=== PATIENT | male | born 1970 | race Hispanic/Latino ===

== ENCOUNTER 2016-10-31 03:31 | Inpatient (IN) | payer MEDICAID ==
--- NOTE | 2016-10-31 04:21 | ED PDOC ---
Arrival/HPI - General Chief Complaint: Psychiatric Evaluation Time Seen by Provider: 10/31/16 04:06 Historian: Patient, EMS - History of Present Illness Narrative History of Present Illness (Text): 10/31/16 04:18 Kevin Erazo is a 46 year old male, whose past medical history includes bipolar disorder, hepatitis B hepatitis C, polysubstance abuse, and depression, who presents to the Emergency department for substance abuse. EMS reports patient took an undisclosed amount of possibly Seroqul and Ativan. Limited HPI and ROS due to patient's somnolence. Time/Duration: Other (tonight) Symptom Onset: Gradual Symptom Course: Unchanged Activities at Onset: Rest, Light Context: Street Past Medical History - Provider Review Nursing Documentation Reviewed: Yes - Infectious Disease Hx of Infectious Diseases: None - Cardiac Hx Hypertension: Yes - Pulmonary Hx Tuberculosis: No - Neurological Hx Seizures: No - HEENT Hx HEENT Disorder: No - Renal Hx Renal Disorder: No - Endocrine/Metabolic Hx Diabetes Mellitus Type 2: Yes (diet controlled) - Hematological/Oncological Hx Cancer: No - Integumentary Hx Dermatological Disorder: No - Musculoskeletal/Rheumatological Hx Back Pain: Yes (takes oxycodone) Hx Falls: No Hx Herniated Disk: Yes - Gastrointestinal Hx Gastrointestinal Disorders: No - Genitourinary/Gynecological Hx Sexually Transmitted Diseases: No - Psychiatric Hx Anxiety: Yes Hx Bipolar Disorder: Yes Hx Depression: Yes Hx Substance Use: Yes - Surgical History Hx Appendectomy: Yes (as a teenager) - Anesthesia Hx Anesthesia: Yes Hx Anesthesia Reactions: No Hx Malignant Hyperthermia: No - Suicidal Assessment Feels Threatened In Home Enviroment: No Family/Social History - Physician Review Nursing Documentation Reviewed: Yes Family/Social History: No Known Family HX Smoking Status: Heavy Smoker > 10 Cigarettes Daily Hx Alcohol Use: No Hx Substance Use: Yes Substance used: seroquel 36mg and 4mg ativan Hx Substance Use Treatment: No Allergies/Home Meds Allergies/Adverse Reactions: Allergies haloperidol Allergy (Verified 10/31/16 03:57) ANAPHYLAXIS naproxen [From Naprosyn] Allergy (Verified 10/31/16 03:57) SHORTNESS OF BREATH Review of Systems - Review of Systems Systems not reviewed;Unavailable: Altered Mental Status Physical Exam Vital Signs Reviewed: Yes Vital Signs Temp Pulse Resp BP Pulse Ox 10/31/16 08:02 75 16 117/73 95 10/31/16 07:04 75 18 116/60 99 10/31/16 05:32 76 18 112/74 88 L 10/31/16 03:55 99.0 F 103 H 16 105/67 95 Temperature: Afebrile Blood Pressure: Normal Pulse: Regular Respiratory Rate: Normal Appearance: Positive for: Well-Appearing, Comfortable Pain Distress: None Mental Status: Positive for: other (Somnolent but arousable) - Systems Exam Head: Present: Atraumatic, Normocephalic Pupils: Present: PERRL Extroacular Muscles: Present: EOMI Conjunctiva: Present: Normal Mouth: Present: Moist Mucous Membranes Neck: Present: Normal Range of Motion Respiratory/Chest: Present: Clear to Auscultation, Good Air Exchange. No: Respiratory Distress, Accessory Muscle Use Cardiovascular: Present: Regular Rate and Rhythm, Normal S1, S2. No: Murmurs Abdomen: Present: Normal Bowel Sounds. No: Tenderness, Distention, Peritoneal Signs Back: Present: Normal Inspection Upper Extremity: Present: Normal Inspection. No: Cyanosis, Edema Lower Extremity: Present: Normal Inspection. No: Edema Neurological: Present: GCS=15, CN II-XII Intact Skin: Present: Warm, Dry, Normal Color. No: Rashes Psychiatric: Present: Other (Somnolent but arousable) Medical Decision Making ED Course and Treatment: 10/31/16 04:18 Impression: 46 year old male brought in for substance abuse. Plan: -- EKG -- Chest X-ray -- Labs, cardiac enzymes, alcohol level -- Narcan -- Reassess and disposition Progress Notes: Reviewed EKG, NSR at 95 bpm[address] Non-specific ST/T waves changes. Reviewed radiology Chest X-ray shows no active disease. 10/31/16 05:[address] Fox, educational paraprofessional, who is aware and agrees to evaluate pt. surgical resident notified. 10/31/16 05:[address] Fox, present in Emergency department to evaluate pt. Accepts pt in to hospitalist service. Pt will be admitted to ICU for drug overdose. - Critical Care Critical Care Minutes: 30 minutes - Lab Interpretations Lab Results: 10/31/16 04:35 10/31/16 04:35 Lab Results 10/31/16 04:52: Urine Opiates Screen Positive H, Urine Methadone Screen Negative , Ur Barbiturates Screen Negative, Ur Phencyclidine Scrn Negative, Ur Amphetamines Screen Negative, U Benzodiazepines Scrn Positive H, U Oth Cocaine Metabols Positive H, U Cannabinoids Screen Negative 10/31/16 04:35: WBC 7.9 D, RBC 4.43, Hgb 13.6 L, Hct 39.2 L, MCV 88.5, MCH 30.7 , MCHC 34.7, RDW 13.8, Plt Count 125, MPV 9.6, Sodium 136, Potassium 3.7, Chloride 100, Carbon Dioxide 25, Anion Gap 15, BUN 20, Creatinine 0.7, Est GFR ( Amer) > 60, Est GFR (Non-Af Amer) > 60, Random Glucose 107, Calcium 8.9 , Total Bilirubin 1.7 H, AST 95 H, ALT 126 H, Alkaline Phosphatase 60, Lactate Dehydrogenase 680, Total Creatine Kinase 420 H, CK-MB (CK-2) 3.0, CK-MB (CK-2) % Cancelled, Troponin I < 0.01, Total Protein 7.7, Albumin 4.0, Globulin 3.7, Albumin/Globulin Ratio 1.1, Salicylates < 1 L, Acetaminophen < 10.0 L, Alcohol, Quantitative < 10 10/31/16 04:31: POC Glucose (mg/dL) 114 H I have reviewed the lab results: Yes - RAD Interpretation Radiology Orders: 10/31/16 04:09 CHEST PORTABLE [RAD] Stat Firewall Engineer: ED Physician - EKG Interpretation Interpreted by ED Physician: Yes Type: 12 lead EKG - Medication Orders Current Medication Orders: Discontinued Medications Enoxaparin Sodium (Lovenox) 40 mg SC DAILY CURT PRN Reason: Protocol Last Admin: 11/01/16 09:08 Dose: 40 MG Subcutaneous Administrations Document 11/01/16 09:08 HD (Rec: 11/01/16 09:08 HD [id number]) Injection Site MAR Injection Site Left Abdomen Charges for Administration # of Subcutaneous Administrations 1 Sodium Chloride (Sodium Chloride 0.9%) 1,000 mls @ 150 mls/hr IV .Q6H40M CURT Last Admin: 11/01/16 09:11 Dose: Lorazepam (Ativan) 1 mg IVP Q3 PRN; Protocol PRN Reason: Anxiety Last Admin: 11/01/16 04:46 Dose: 1 MG Behavioural Document 11/01/16 04:46 OLIVA (Rec: 11/01/16 04:47 OLIVA [id number]) Maintenance Maintenance Dose No Nonmedicinal Nonmedicinal Interventions Redirect Therapeutic Communication Behavior Behavior for Medication: Anxiety IVP Administration Document 11/01/16 04:46 OLIVA (Rec: 11/01/16 04:47 OLIVA [id number]) Charges for Administration # of IVP Administrations 1 Re-Assess: Reassess Psych Meds Document 11/01/16 05:16 HD (Rec: 11/01/16 07:20 HD [id number]) Reassess Psych Med Effective Methadone HCl (Methadone) 20 mg PO BID [facility] Last Admin: 11/01/16 09:09 Dose: 20 MG MAR Pain Assessment Document 11/01/16 09:09 HD (Rec: 11/01/16 09:09 HD [id number]) Pain Reassessment Is this a pain reassessment? No Sleep Is patient sleeping during reassessment? No Presence of Pain Presence of Pain No Re-Assess: MAR Pain Assessment Document 11/01/16 10:09 HD (Rec: 11/01/16 10:27 HD [id number]) Pain Reassessment Is this a pain reassessment? Yes Sleep Is patient sleeping during reassessment? No Presence of Pain Presence of Pain No Mupirocin (Bactroban Ointment) 0 gm TOP BID CURT Stop: 11/05/16 10:01 Last Admin: 11/01/16 09:28 Dose: 1 APPLIC Naloxone HCl (Narcan) 1 mg IVP STAT [facility] Stop: 10/31/16 04:29 Last Admin: 10/31/16 04:57 Dose: 1 MG IVP Administration Document 10/31/16 04:57 CHRISTIAN (Rec: 10/31/16 04:57 CHRISTIAN [id number]) Charges for Administration # of IVP Administrations 1 Pantoprazole Sodium (Protonix Inj) 40 mg IVP DAILY [facility] Last Admin: 11/01/16 09:09 Dose: 40 MG IVP Administration Document 11/01/16 09:09 HD (Rec: 11/01/16 09:09 HD [id number]) Charges for Administration # of IVP Administrations 1 - Scribe Statement The provider has reviewed the documentation as recorded by the Scribe Angela Franco Provider Attestation: All medical record entries made by the Gema were at my direction and personally dictated by me. I have reviewed the chart and agree that the record accurately reflects my personal performance of the history, physical exam, medical decision making, and the department course for this patient. I have also personally directed, reviewed, and agree with the discharge instructions and disposition. Disposition/Present on Arrival - Present on Arrival Any Indicators Present on Arrival: No History of DVT/PE: No History of Uncontrolled Diabetes: No Urinary Catheter: No History of Decub. Ulcer: No History Surgical Site Infection Following: None - Disposition Have Diagnosis and Disposition been Completed?: Yes Diagnosis: Drug overdose Disposition: HOSPITALIZED Disposition Time: 05:58 Patient Plan: Admission Condition: STABLE
[2016-10-31] MEDS: Naloxone 0.4 mg/ml Inj (Adult) IVP STA (04:57)
[2016-10-31 04:58] LABS: HEMATOCRIT 39.2 % (42.0-52.0); MEAN CELL VOLUME 88.5 fL (80.0-105.0); MEAN CORPUSCULAR HEMOGLOBIN 30.7 pg (25.0-35.0); MEAN CORPUSCULAR HGB CONC 34.7 g/dl (31.0-37.0); MEAN PLATELET VOLUME 9.6 fl (7.0-11.0); RED CELL DISTRIBUTION WIDTH 13.8 % (11.5-14.5); WHITE BLOOD COUNT 7.9 10^3/ul (4.5-11.0)
[2016-10-31 05:21] LABS: ALB/GLOB RATIO 1.1 (1.1-1.8); ALKALINE PHOSPHATASE 60 U/L (38-133); ALT/SGPT 126 U/L (7-56); AST/SGOT 95 U/L (15-59); BILIRUBIN,TOTAL 1.7 mg/dL (0.2-1.3); BLOOD UREA NITROGEN 20 mg/dL (7-21); CALCIUM 8.9 mg/dL (8.4-10.5); CARBON DIOXIDE 25 mmol/L (21-33); CHLORIDE 100 mmol/L (98-107); GFR AFRICAN-AMERICAN > 60; GLUCOSE,RANDOM 107 mg/dL (70-110); POTASSIUM 3.7 mmol/L (3.6-5.0); SODIUM 136 mmol/L (132-148); TOTAL PROTEIN 7.7 g/dL (5.8-8.3)
[2016-10-31 05:33] LABS: TROPONIN I < 0.01 ng/mL
--- NOTE | 2016-10-31 06:16 | CP.PCM.HP ---
<NathalieDirk - Last Filed: 10/31/16 07:15> History of Present Illness - History of Present Illness History of Present Illness: cc: overdose HPI: Patient is a 46yo male with past medical history of bipolar disorder, depression, hepatitis B, hepatitis C and polysubstance abuse [facility]. Patient was somnolent on examination and unable to provide history. According to ED staff, patient took an unknown amount of ativan and seroquel. In the ED, patient's vitals were as follows: temperature 99F, blood pressure 105/67, heart rate 103bpm, RR 16, o2 sat 95% on room air. Labs were notable for a total bilirubin of 1.7, AST 95, ALT 126, CK 420. A chest xray revealed no active disease. An EKG revealed normal sinus rhythm at 95bpm with nonspecific ST-T wave changes. Poison control was contacted by ED staff and recommended conservative management. The patient was subsequently admitted to the ICU for further evaluation and treatment of unknown drug overdose. 12point ROS limited due to patient status PMHx: bipolar disorder, depression, hepatitis B/C, polysubstance abuse PSHx: unknown Allergies: haloperidol, naproxen Family hx: Unknown Social Hx: Homeless; history of polysubstance abuse; tobacco use Present on Admission - Present on Admission Any Indicators Present on Admission: No Past Patient History - Infectious Disease Hx of Infectious Diseases: None - Past Social History Smoking Status: Heavy Smoker > 10 Cigarettes Daily - CARDIAC Hx Hypertension: Yes - PULMONARY Hx Tuberculosis: No - NEUROLOGICAL Hx Seizures: No - HEENT Hx HEENT Problems: No - RENAL Hx Chronic Kidney Disease: No - ENDOCRINE/METABOLIC Hx Diabetes Mellitus Type 2: Yes (diet controlled) - HEMATOLOGICAL/ONCOLOGICAL Hx Cancer: No - INTEGUMENTARY Hx Dermatological Problems: No - MUSCULOSKELETAL/RHEUMATOLOGICAL Hx Back Pain: Yes (takes oxycodone) Hx Falls: No Hx Herniated Disk: Yes - GASTROINTESTINAL Hx Gastrointestinal Disorders: No - GENITOURINARY/GYNECOLOGICAL Hx Sexually Transmitted Disorders: No - PSYCHIATRIC Hx Anxiety: Yes Hx Bipolar Disorder: Yes Hx Depression: Yes Hx Substance Use: Yes - SURGICAL HISTORY Hx Appendectomy: Yes (as a teenager) - ANESTHESIA Hx Anesthesia: Yes Hx Anesthesia Reactions: No Hx Malignant Hyperthermia: No Meds Allergies/Adverse Reactions: Allergies Allergy/AdvReac Type Severity Reaction Status Date / Time haloperidol Allergy ANAPHYLAXIS Verified 10/31/16 03:57 naproxen [From Naprosyn] Allergy SHORTNESS Verified 10/31/16 03:57 OF BREATH Physical Exam - Constitutional Appears: No Acute Distress - Head Exam Head Exam: ATRAUMATIC, NORMAL INSPECTION, NORMOCEPHALIC - Eye Exam Eye Exam: EOMI, PERRL - Neck Exam Neck exam: Positive for: Normal Inspection - Respiratory Exam Respiratory Exam: Clear to Auscultation Bilateral. absent: Rales, Rhonchi, Wheezes - Cardiovascular Exam Cardiovascular Exam: RRR, +S1, +S2. absent: Diastolic murmur, JVD, Rubs, Systolic Murmur - GI/Abdominal Exam GI & Abdominal Exam: Soft. absent: Distended, Firm, Guarding, Rebound, Tenderness - Extremities Exam Extremities exam: Positive for: normal inspection. Negative for: pedal edema, tenderness - Neurological Exam Additional comments: somnolent - Skin Skin Exam: Dry, Intact, Normal Color, Warm Results - Vital Signs Recent Vital Signs: Last Vital Signs Temp 99.0 F 10/31/16 03:55 Pulse 103 H 10/31/16 03:55 Resp 16 10/31/16 03:55 BP 105/67 10/31/16 03:55 Pulse Ox 95 10/31/16 03:55 - Labs Result Diagrams: 10/31/16 04:35 10/31/16 04:35 Labs: Laboratory Results - last 24 hr 10/31/16 10/31/16 04:31 04:35 WBC 7.9 D RBC 4.43 Hgb 13.6 L Hct 39.2 L MCV 88.5 MCH 30.7 MCHC 34.7 RDW 13.8 Plt Count 125 MPV 9.6 Sodium 136 Potassium 3.7 Chloride 100 Carbon Dioxide 25 Anion Gap 15 BUN 20 Creatinine 0.7 Est GFR ( Amer) > 60 Est GFR (Non-Af Amer) > 60 POC Glucose (mg/dL) 114 H Random Glucose 107 Calcium 8.9 Total Bilirubin 1.7 H AST 95 H ALT 126 H Alkaline Phosphatase 60 Lactate Dehydrogenase 680 Total Creatine Kinase 420 H CK-MB (CK-2) 3.0 CK-MB (CK-2) % Cancelled Troponin I < 0.01 Total Protein 7.7 Albumin 4.0 Globulin 3.7 Albumin/Globulin Ratio 1.1 Alcohol, Quantitative < 10 Assessment & Plan - Assessment and Plan (Free Text) Assessment: 46yo male with history of bipolar disorder, depression, hepatitis B/C, polysubstance abuse admitted to the ICU for drug overdose with suspected ativan/ seroquel Plan: 1. Drug overdose -Neurochecks q2h -Aspiration/Seizure precautions -IVNS @ 150/hr -HOB > 30' -Drug toxicology pending -Poison control notified, recommended conservative management -Repeat EKG -Patient given narcan in the ED -Strict I's and O's -Monitor and replete electrolytes as needed 2. GI/DVT prophylaxis -Protonix/lovenox Patient seen and case discussed with attending, Dr. Fox - Date & Time Date: 10/31/16 Time: 06:20 <Albert Fox MD - Last Filed: 10/31/16 07:39> Results - Vital Signs Recent Vital Signs: Last Vital Signs Temp 99.0 F 10/31/16 03:55 Pulse 75 10/31/16 07:04 Resp 18 10/31/16 07:04 BP 116/60 10/31/16 07:04 Pulse Ox 99 10/31/16 07:04 - Labs Result Diagrams: 10/31/16 04:35 10/31/16 04:35 Attending/Attestation - Attestation I have personally seen and examined this patient.: Yes I have fully participated in the care of the patient.: Yes I have reviewed all pertinent clinical information: Yes Notes (Text): 10/31/16 07:37 -I agree with the above H&P completed by the resident physician. -Briefly, the patient is a 46 year old man with history of hep B, hep C, bipolar disorder and polysubstance abuse, who presents with AMS due to a likely overdose of cocaine, Benzo's and opiates (all 3 positive on urine toxicology). He will be treated with aggressive IVF's and serial neuro checks. Poison control has been notified. 10/31/16 07:39
[2016-10-31] MEDS: Sodium Chloride 0.9% 1,000 ML IV SCH ×2 (07:15→14:26)
[2016-10-31] MEDS: Enoxaparin 40 mg Syringe SC SCH (10:25)
--- NOTE | 2016-10-31 11:08 | RAD ---
HISTORY: medical clearance COMPARISON: 02/06/2016. FINDINGS: LUNGS: No active pulmonary disease. PLEURA: No significant pleural effusion identified, no pneumothorax apparent. CARDIOVASCULAR: Normal. OSSEOUS STRUCTURES: No significant abnormalities. VISUALIZED UPPER ABDOMEN: Normal. OTHER FINDINGS: None. IMPRESSION: No active disease. No significant interval change compared to the prior examination(s).
[2016-10-31 12:27] LABS: ARTERIAL BLOOD GAS HCO3 25.4 mmol/L (21-28); ARTERIAL BLOOD GAS PH 7.37 (7.35-7.45)
--- NOTE | 2016-10-31 12:54 | PN ---
DATE: 10/31/2016 The patient seen and examined at bedside. This is a 46-year-old gentleman with history of bipolar disorder, depression, hepatitis B, C and polysubstance abuse , who presented to [facility] via EMS after he was found to be unresponsive. It appears that patient might have taken Ativan and Seroquel of unknown amount. Poison control tin assorter was contacted by ER staff and recommended conservative management. The patient is very somnolent; however, easily arousable and when does so, he is alert and oriented and following commands. No nausea, no vomiting, no diarrhea, no constipation, no chest pain, no shortness of breath, no fever, no chills, no sweats. PAST MEDICAL HISTORY: Bipolar disorder, depression, hepatitis B and C, polysubstance abuse. ALLERGIES: NAPROSYN, HALOPERIDOL. FAMILY HISTORY: Noncontributory. SOCIAL HISTORY: The patient is homeless, active tobacco user and history of polysubstance abuse. REVIEW OF SYSTEMS: Revealed 12-organ system other than mentioned in history of present illness is negative. MEDICATIONS: At home, Seroquel, Desyrel, multivitamins, Remeron, Neurontin, Depakote, Xanax PHYSICAL EXAMINATION: VITAL SIGNS: Heart rate 65, blood pressure 111/62, respiratory rate 17, oxygen saturation 96%. HEAD AND NECK: Atraumatic. LUNGS: Clear to auscultation bilaterally. HEART: Regular rate and rhythm. S1, S2 normal. ABDOMEN: Soft, nontender, nondistended. MUSCULOSKELETAL: No C/C/E. NEUROLOGIC: The patient moves all extremities spontaneously. SKIN: Moist. PSYCHIATRIC: The patient is alert and oriented x 3. LABORATORY DATA: WBC 7.9, hemoglobin 13.6, platelet count 125. Sodium 136, potassium 3.7, chloride 100, carbon dioxide 25, BUN 20, creatinine 0.7, glucose 107, AST 95, ALT 126. CPK 420. U-tox screen positive for benzodiazepines, cocaine and opiates. ASSESSMENT AND PLAN: This is a 46-year-old gentleman with polysubstance abuse who presents with probable multiple psychotropic medication intoxication. At present time, he is hemodynamically and respiratory ann stable. He is able to protect his airways despite his somnolence. ABG is pending. If no significant ventilatory or gas exchange abnormality is found on ABG provided that all above continue to hold, we will transfer patient to telemetry. We will continue to target euvolemia, euglycemia, normothermia and oxygen saturation more than 90%. We will continue with deep venous thrombosis and gastrointestinal prophylaxis. Addendum: AB., lactate 0.5 ccm time 40 min Bereket Smith MD cc: [id number] TT: 10/31/2016 12:53:42 Confirmation # [id number] Dictation # [id number] tn MTDD
[2016-10-31 13:51] VITALS: BMI 26.6
--- NOTE | 2016-10-31 17:56 | CARD ---
APPROVED REPORT EKG Measurement Heart [id number] <Conclusion> Normal sinus rhythm RSR' or QR pattern in V1 suggests right ventricular conduction delay Borderline ECG
[2016-10-31 20:14] VITALS: PULSE 62; O2SAT 88
[2016-11-01 05:04] VITALS: BP 129/85; RESP 23
[2016-11-01 05:07] VITALS: TEMP 98.8
[2016-11-01 05:35] LABS: ADD MANUAL DIFF? NO
[2016-11-01 05:39] LABS: BASO # 0.01 K/mm3 (0.0-2.0); BASO % 0.2 % (0.0-3.0); WHITE BLOOD COUNT 4.7 10^3/ul (4.5-11.0)
[2016-11-01 05:50] LABS: EOS # 0.2 (0.0-0.7); EOS % 3.2 % (1.5-5.0); GRAN # 1.93 (1.4-6.5); GRAN % 40.7 % (50.0-68.0); LYMPH # 2.1 (1.2-3.4); LYMPH % 43.5 % (22.0-35.0); MEAN CELL VOLUME 88.8 fL (80.0-105.0); MEAN CORPUSCULAR HEMOGLOBIN 30.6 pg (25.0-35.0); MEAN CORPUSCULAR HGB CONC 34.5 g/dl (31.0-37.0); MEAN PLATELET VOLUME 9.8 fl (7.0-11.0); MONO # 0.6 (0.1-0.6); MONO % 12.4 % (1.0-6.0); PLATELET COUNT 92 10^3/uL (120.0-450.0); RED CELL DISTRIBUTION WIDTH 13.7 % (11.5-14.5)
[2016-11-01 05:51] LABS: ALKALINE PHOSPHATASE 49 U/L (38-133); ALT/SGPT 113 U/L (7-56); AST/SGOT 83 U/L (15-59); BILIRUBIN,TOTAL 1.1 mg/dL (0.2-1.3); BLOOD UREA NITROGEN 19 mg/dL (7-21); CALCIUM 8.1 mg/dL (8.4-10.5); CARBON DIOXIDE 25 mmol/L (21-33); CHLORIDE 107 mmol/L (98-107); GFR AFRICAN-AMERICAN > 60; GLUCOSE,RANDOM 117 mg/dL (70-110); PHOSPHOROUS 2.8 mg/dL (2.5-4.5); POTASSIUM 3.5 mmol/L (3.6-5.0); SODIUM 139 mmol/L (132-148); TOTAL PROTEIN 6.3 g/dL (5.8-8.3)
[2016-11-01] MEDS: Sodium Chloride 0.9% 1,000 ML IV SCH ×2 (07:21→09:11)
[2016-11-01] MEDS: Enoxaparin 40 mg Syringe SC SCH (09:08)
--- NOTE | 2016-11-01 15:22 | CON ---
DATE: 11/01/2016 HISTORY OF PRESENT ILLNESS: Shortly, the patient is a 46-year-old male with long and debil itating history of polysubstance abuse and dependence. The patient was brought in by ambulance becau se patient was found intoxicated on street. The patient was admitted to ICU unit. Psych consult was called for evaluation of mood symptoms and patient has history of mental illness. This internal communications writer is amadeo sweet with this patient from the previous admissions into the psychiatric inpatient unit here in [facility] which took place about a year ago, to be exact . The patient has history of antisocial personality disorder. The patient has history of polysubstance abuse and dependence, disruptive beha vior, self-mutilating behavior. The patient was examined today in the ICU unit. The patient present ed to be drowsy, but easily arousable. The patient reported that he found to be intoxicated in the s [place] and that is why he was brought in for evaluation. The patient said that he was doing okay late ly. Denied any thoughts of harming himself prior to coming to the hospital. The patient also denied feeling anxious, denied hearing voices, denied seeing things, denied paranoid ideations. The patien t reported that he is followed up by [facility] and he has a followup appointment with his therapis t today. The patient' has a followup appointment by the end of the month with his psychiatrist. The patient denied any thoughts of harming himself or others at the moment of the interview by this [facility]. VITAL SIGNS: Reviewed. Temperature 98.8, pulse of 62, blood pressure 129/85, respirations 23. MEDICATIONS: Reviewed. Lovenox, Ativan was given to the patient, methadone 20 mg twice a day, mupir ocin, Protonix and sodium chloride. LABORATORY DATA: Reviewed. The patient has hemoglobin and hematocrit 13.1 and 38.0. Chemistry revi ewed. AST and ALT 83 and 113, respectively. Potassium 3.5. Toxicology: Opioids positive, benzodia zepines positive, and cocaine positive. This internal communications writer had prolonged conversation with Dr. Smith as well as Dr. Garvey. From the medical perspective, the patient is doing better. PAST PSYCHIATRIC HISTORY: As this internal communications writer described above, the patient has antisocial personality dis order, multiple admissions into the psychiatric inpatient unit for possible bipolar disorder and poly substance abuse and dependence. Most recent was in [facility] in 02/2016. MENTAL STATUS EXAMINATION: The patient presented to be sleepy, but easily arousable, intermittent ey e contact. Speech was normal rate, tone, quality, and quantity. Mood described as "I'm fine." Affe ct was constricted, but reactive, mood congruent. Thought process was coherent and goal directed. T hought content: The patient denied visual, auditory, tactile hallucinations. Denied paranoid ideati ons. The patient denied thoughts of harming himself or others, denied intent or plan. Insight and j udgment are improving. Impulses are well controlled. IMPRESSION: Polysubstance abuse and dependence, rule out substance-induced mood disorder, rule out b ipolar disorder. PLAN: The patient has followup appointment with his psychiatrist at [facility]. The patient has f harish appointment with his therapist today. The patient has enough medication at home. The patien t denied thoughts of harming himself or others. Denied intent or plan. There is no contraindication from this internal communications writer for discharging patient. From the medical perspective, the patient is doing much b farhan as per Dr. Garvey The patient has future-oriented plans, deemed to be not in danger to self or others and to be discharged. Thank you very much for letting me participate in care of your patient. Suzanne Hammer MD cc: [id number] TT: 11/01/2016 15:22:00 Confirmation # [id number] Dictation # [id number] tn
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
== END 2016-11-01 11:18 | disposition home or self-care (01) | DRG 449 ==
LOC: ED 03:31 → ERH 05:58 → CCU 08:13
PROVIDERS: ADMIT Internal Medicine; ATTEND Internal Medicine
DX: T42.4X1A Poisoning by benzodiazepines, accidental (unintentional), initial encounter (principal); T40.601A Poisoning by unspecified narcotics, accidental (unintentional), initial encounter; T40.5X1A Poisoning by cocaine, accidental (unintentional), initial encounter; R41.82 Altered mental status, unspecified; F31.9 Bipolar disorder, unspecified; B19.20 Unspecified viral hepatitis C without hepatic coma; B19.10 Unspecified viral hepatitis B without hepatic coma; F11.10 Opioid abuse, uncomplicated; F14.10 Cocaine abuse, uncomplicated; F60.2 Antisocial personality disorder; R40.0 Somnolence; Z91.19 Patient's noncompliance with other medical treatment and regimen; Z59.0 Homelessness; Y92.9 Unspecified place or not applicable

== ENCOUNTER 2018-01-02 21:54 | Emergency (ER) | payer MEDICAID ==
[2018-01-02 22:26] VITALS: BMI 31.6
[2018-01-02] MEDS ORDERED: TraMADol/Apap 37.5/325 mg Tab PO STA (22:49)
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
[2018-01-03 01:00] VITALS: RESP 18; TEMP 98.5
[2018-01-03] MEDS ORDERED: Oxycodone/Acetaminophen 5/325 mg Tab PO STA (01:23)
[2018-01-03 01:55] VITALS: BP 134/76; PULSE 78; O2SAT 98
== END 2018-01-03 01:55 | disposition home or self-care (01) ==
LOC: ED 21:54
DX: S02.2XXA Fracture of nasal bones, initial encounter for closed fracture (principal); S02.31XA Fracture of orbital floor, right side, initial encounter for closed fracture; S02.92XA Unspecified fracture of facial bones, initial encounter for closed fracture; Y04.0XXA Assault by unarmed brawl or fight, initial encounter; R04.0 Epistaxis; E11.9 Type 2 diabetes mellitus without complications; I10 Essential (primary) hypertension; F17.210 Nicotine dependence, cigarettes, uncomplicated